=== PATIENT | female | born 1995 | race Caucasian/White ===

== ENCOUNTER 2017-03-06 13:10 | Outpatient (CLI) | payer OTHER ==
[2017-03-06] MEDS ORDERED: RINGERS SOLUTION,LACTATED 1,000 ML IV ONE (13:26)
[2017-03-06] MEDS ORDERED: RINGERS SOLUTION,LACTATED 1,000 ML IV PRN (13:26)
[2017-03-06 13:54] LABS: APPEARANCE,URINE SLIGHTLY-CLOUDY; BILIRUBIN,URINE NEGATIVE (NEGATIVE); GLUCOSE, URINE NEGATIVE (NEGATIVE); KETONES,URINE NEGATIVE (NEGATIVE); LEUKOCYTE ESTERASE,URINE MODERATE (NEGATIVE); NITRITE,URINE NEGATIVE (NEGATIVE); PROTEIN,URINE NEGATIVE (NEGATIVE); URINE SPECIFIC GRAVITY 1.003; UROBILINOGEN,URINE NEGATIVE mg/dL (<2.0)
[2017-03-06 14:11] LABS: URINE BARBITURATES SCREEN NEGATIVE; URINE METHADONE SCREEN NEGATIVE; URINE OPIATES LOW NEGATIVE; URINE PHENCYCLIDINE SCREEN NEGATIVE
--- NOTE | 2017-03-06 15:23 | Non Stress Test Report ---
Non Stress Test Datetime Report Generated by CPN: 03/06/2017 15:23 DEMOGRAPHIC EGA NST: 37.6 INDICATION Indication for Study: Ordered by Provider MONITORING Monitor Explained: Monitor Explained; Test Explained; Patient Verbalized Understanding Time on Monitor: 03/06/2017 13:44 Time off Monitor: 03/06/2017 14:10 NST Duration: 26 NST INTERVENTIONS NST Interventions: PO Hydration; IV Fluids Physician Notified NST: K Catalan CNM BABY A: [id number] BABY A Movement : Present Contraction Frequency : Irr FHR Baseline : 125 Accelerations : 15X15 Decelerations : None Variability : Moderate 6-25bpm NST Review: Meets Criteria for Reactive NST NST Review and Verified By : EVERT CAMPBELL RN NST Results: Reactive NST REPORT Report Trigger: Send Report
--- NOTE | 2017-03-06 21:45 | L&D Discharge Summary ---
OB Discharge Summary Datetime Report Generated by CPN: 03/06/2017 21:45 DISCHARGE DIAGNOSIS Diagnosis/Symptoms: Reassuring Surveillance - Annotate Details Diagnoses/Symptoms Other: IUP at 37.6, repeat SHILPA after IV fluids. Number of Babies in Womb: 1 Parity: 1 DIET/ACTIVITY/RESTRICTIONS Diet: Regular Activity: Normal Activity TEACHING/INSTRUCTIONS/REFERRALS Instructions Given To: Patient Instructions Understood: Patient Verbalized Understanding Referrals: None Educational Materials- Other: Kick Counts DISCHARGE INFORMATION Discharged AMA: No Discharge Date/Time: 03/06/2017 18:39 Discharged To: Home Discharge Provider Name: Dr. Moreno Accompanied By: Discharge Method: Ambulatory Condition: Stable FOLLOW UP INFORMATION Follow Up With: [facility] Follow Up On: As Scheduled Follow Up Phone Number: [facility] - Comments: Pt physically left L_D ambulatory in stable condition with familyat side with no complaints or needs at this time.
--- NOTE | 2017-03-13 22:49 | L&D General Admission ---
General Admit Datetime Report Generated by CPN: 03/13/2017 22:45 Patient Age: 21 (03/05/2017 16:33:QS system process) EDC: 03/21/2017 00:00 (03/06/2017 14:32:JOHNATHON Monsivais) : 3 (03/06/2017 14:32:JOHNATHON Monsivais) Para: 1 (03/06/2017 14:32:JOHNATHON Monsivais) Term: 1 (03/06/2017 14:32:JOHNATHON Monsivais) : 0 (03/06/2017 14:32:JOHNATHON Monsivais) Spontaneous Abortions: 1 (03/06/2017 14:32:JOHNATHON Monsivais) Induced Abortions: 0 (03/06/2017 14:32:JOHNATHON Monsivais) Livin (03/06/2017 14:32:JOHNATHON Monsivais) Cesareans: 0 (03/06/2017 14:32:JOHNATHON Monsivais) VBACs: 0 (03/06/2017 14:32:JOHNATHON Monsivais) Ectopic: 0 (03/06/2017 14:32:JOHNATHON Monsivais) Multiple Births: 0 (03/06/2017 14:32:JOHNATHON Monsivais) Baby, Number in Womb: 1 (03/06/2017 14:32:JOHNATHON Monsivais) Primary Assistant Housekeeping Manager: [facility] (03/06/2017 14:32:JOHNATHON Monsivais) Adequate Care: Yes (03/06/2017 14:32:JOHNATHON Monsivais) Prepregnancy Weight (lb): 192 (03/06/2017 14:32:JOHNATHON Monsivais) Medication Allergy: Yes (03/06/2017 14:32:JOHNATHON Monsivais) Medication Allergies: dexamethasone sod phosphate (03/06/2017); Penicillins (03/06/2017); dexamethasone (03/06/2017); latex (03/06/2017) (03/06/2017 13:22:QS system process) Medication Allergies: dexamethasone sod phosphate (12/10/2015); Penicillins (12/10/2015); dexamethasone (12/10/2015); latex (12/11/2015) (03/05/2017 16:33:QS system process) Latex Allergy: Latex Allergies (03/06/2017 14:32:JOHNATHON Monsivais) Primary Language: Armenian (03/06/2017 14:32:JOHNATHON Monsivais) Address: [address] [place] [address] (03/05/2017 16:33:QS system process) Zipcode: [facility] (03/05/2017 16:33:QS system process) Home (03/05/2017 16:33:QS system process) SSN: [id number] (03/05/2017 16:33:QS system process) Next of Kin Name: SERJIO MCCALL (03/05/2017 16:33:QS system process) Next of Kin (03/05/2017 16:33:QS system process) Next of Kin Relationship: SPO (03/05/2017 16:33:QS system process) Date of : 1995 (03/05/2017 16:33:QS system process) Marital Status: (03/05/2017 16:33:QS system process) Sex: Female (03/05/2017 16:33:QS system process) Race: (03/05/2017 16:33:QS system process) Ethnicity: Non- or (03/05/2017 16:33:QS system process) Jehovah'S Witness: Voodoo (03/05/2017 16:33:QS system process) Alcohol: No (03/06/2017 14:32:JOHNATHON Monsivais) Cigarettes: Never Smoker. [id number] (03/06/2017 14:32:JOHNATHON Monsivais) Marijuana: No (03/06/2017 14:32:JOHNATHON Monsivais) Cocaine: No (03/06/2017 14:32:JOHNATHON Monsivais) Other Illicit Drugs: No (03/06/2017 14:32:JOHNATHON Monsivais)
--- NOTE | 2017-03-13 22:49 | L&D Discharge Summary ---
OB Discharge Summary Datetime Report Generated by CPN: 03/13/2017 22:45 DISCHARGE DIAGNOSIS Diagnosis/Symptoms: Reassuring Surveillance - Annotate Details Diagnoses/Symptoms Other: IUP at 37.6, repeat SHILPA after IV fluids. Gestation: 38.6 Number of Babies in Womb: 1 Parity: 1 DIET/ACTIVITY/RESTRICTIONS Diet: Regular Activity: Normal Activity TEACHING/INSTRUCTIONS/REFERRALS Instructions Given To: Patient Instructions Understood: Patient Verbalized Understanding Referrals: None Educational Materials- Other: Kick Counts DISCHARGE INFORMATION Discharged AMA: No Discharge Date/Time: 03/06/2017 18:39 Discharged To: Home Discharge Provider Name: Dr. Moreno Accompanied By: Discharge Method: Ambulatory Condition: Stable FOLLOW UP INFORMATION Follow Up With: [facility] Follow Up On: As Scheduled Follow Up Phone Number: [facility] - Comments: Pt physically left L_D ambulatory in stable condition with familyat side with no complaints or needs at this time.
--- NOTE | 2017-03-14 04:49 | L&D General Admission ---
General Admit Datetime Report Generated by CPN: 03/14/2017 04:46 INFORMATION Patient Age: 21 (03/05/2017 16:33:QS system process) EDC: 03/21/2017 00:00 (03/06/2017 14:32:JOHNATHON Monsivais) : 3 (03/06/2017 14:32:JOHNATHON Monsivais) Para: 1 (03/06/2017 14:32:JOHNATHON Monsivais) Term: 1 (03/06/2017 14:32:JOHNATHON Monsivais) : 0 (03/06/2017 14:32:JOHNATHON Monsivais) Spontaneous Abortions: 1 (03/06/2017 14:32:JOHNATHON Monsivais) Induced Abortions: 0 (03/06/2017 14:32:JOHNATHON Monsivais) Livin (03/06/2017 14:32:JOHNATHON Monsivais) Cesareans: 0 (03/06/2017 14:32:JOHNATHON Monsivais) VBACs: 0 (03/06/2017 14:32:JOHNATHON Monsivais) Ectopic: 0 (03/06/2017 14:32:JOHNATHON Monsivais) Multiple Births: 0 (03/06/2017 14:32:JOHNATHON Monsivais) Baby, Number in Womb: 1 (03/06/2017 14:32:JOHNATHON Monsivais) CARE Primary Celery Packer: [facility] (03/06/2017 14:32:JOHNATHON Monsivais) Adequate Care: Yes (03/06/2017 14:32:JOHNATHON Monsivais) Prepregnancy Weight (lb): 192 (03/06/2017 14:32:JOHNATHON Monsivais) Prepregnancy Weight (kg): 87.3 (03/06/2017 14:32:QS system process) Height (in): 65 (03/06/2017 13:22:QS system process) ALLERGIES Medication Allergy: Yes (03/06/2017 14:32:JOHNATHON Monsivais) Medication Allergies: dexamethasone sod phosphate (03/06/2017); Penicillins (03/06/2017); dexamethasone (03/06/2017); latex (03/06/2017) (03/06/2017 13:22:QS system process) Medication Allergies: dexamethasone sod phosphate (12/10/2015); Penicillins (12/10/2015); dexamethasone (12/10/2015); latex (12/11/2015) (03/05/2017 16:33:QS system process) Latex Allergy: Latex Allergies (03/06/2017 14:32:JOHNATHON Monsivais) COMMUNICATION Primary Language: Divehi (03/06/2017 14:32:JOHNATHON Monsivais) DEMOGRAPHICS Address: [address] [place] [id number] (03/05/2017 16:33:QS system process) Zipcode: [address] (03/05/2017 16:33:QS system process) Home (03/05/2017 16:33:QS system process) N: [id number] (03/05/2017 16:33:QS system process) Next of Kin Name: SERJIO MCCALL (03/05/2017 16:33:QS system process) Next of Kin (03/05/2017 16:33:QS system process) Next of Kin Relationship: SPO (03/05/2017 16:33:QS system process) Date of : 1995 (03/05/2017 16:33:QS system process) Marital Status: (03/05/2017 16:33:QS system process) Sex: Female (03/05/2017 16:33:QS system process) Race: (03/05/2017 16:33:QS system process) Ethnicity: Non- or (03/05/2017 16:33:QS system process) Samaritan: Sabianism (03/05/2017 16:33:QS system process) DRUG AND ALCOHOL USE Alcohol: No (03/06/2017 14:32:JOHNATHON Monsivais) Cigarettes: Never Smoker. [id number] (03/06/2017 14:32:JOHNATHON Monsivais) Marijuana: No (03/06/2017 14:32:JOHNATHON Monsivais) Cocaine: No (03/06/2017 14:32:JOHNATHON Monsivais) Other Illicit Drugs: No (03/06/2017 14:32:JOHNATHON Monsivais)
--- NOTE | 2017-03-14 04:49 | L&D Discharge Summary ---
OB Discharge Summary Datetime Report Generated by CPN: 03/14/2017 04:46 DISCHARGE DIAGNOSIS Diagnosis/Symptoms: Reassuring Surveillance - Annotate Details Diagnoses/Symptoms Other: IUP at 37.6, repeat SHILPA after IV fluids. Gestation: 38.6 Number of Babies in Womb: 1 Parity: 1 DIET/ACTIVITY/RESTRICTIONS Diet: Regular Activity: Normal Activity TEACHING/INSTRUCTIONS/REFERRALS Instructions Given To: Patient Instructions Understood: Patient Verbalized Understanding Referrals: None Educational Materials- Other: Kick Counts DISCHARGE INFORMATION Discharged AMA: No Discharge Date/Time: 03/06/2017 18:39 Discharged To: Home Discharge Provider Name: Dr. Moreno Accompanied By: Discharge Method: Ambulatory Condition: Stable FOLLOW UP INFORMATION Follow Up With: [facility] Follow Up On: As Scheduled Follow Up Phone Number: [facility] - Comments: Pt physically left L_D ambulatory in stable condition with familyat side with no complaints or needs at this time.
--- NOTE | 2017-03-14 10:49 | L&D General Admission ---
General Admit Datetime Report Generated by CPN: 03/14/2017 10:45 INFORMATION Patient Age: 21 (03/05/2017 16:33:QS system process) EDC: 03/21/2017 00:00 (03/06/2017 14:32:JOHNATHON Monsivais) : 3 (03/06/2017 14:32:JOHNATHON Monsivais) Para: 1 (03/06/2017 14:32:JOHNATHON Monsivais) Term: 1 (03/06/2017 14:32:JOHNATHON Monsivais) : 0 (03/06/2017 14:32:JOHNATHON Monsivais) Spontaneous Abortions: 1 (03/06/2017 14:32:JOHNATHON Monsivais) Induced Abortions: 0 (03/06/2017 14:32:JOHNATHON Monsivais) Livin (03/06/2017 14:32:JOHNATHON Monsivais) Cesareans: 0 (03/06/2017 14:32:JOHNATHON Monsivais) VBACs: 0 (03/06/2017 14:32:JOHNATHON Monsivais) Ectopic: 0 (03/06/2017 14:32:JOHNATHON Monsivais) Multiple Births: 0 (03/06/2017 14:32:JOHNATHON Monsivais) Baby, Number in Womb: 1 (03/06/2017 14:32:JOHNATHON Monsivais) CARE Primary Casting Finisher: [facility] (03/06/2017 14:32:JOHNATHON Monsivais) Adequate Care: Yes (03/06/2017 14:32:JOHNATHON Monsivais) Prepregnancy Weight (lb): 192 (03/06/2017 14:32:JOHNATHON Monsivais) Prepregnancy Weight (kg): 87.3 (03/06/2017 14:32:QS system process) Height (in): 65 (03/06/2017 13:22:QS system process) ALLERGIES Medication Allergy: Yes (03/06/2017 14:32:JOHNATHON Monsivais) Medication Allergies: dexamethasone sod phosphate (03/06/2017); Penicillins (03/06/2017); dexamethasone (03/06/2017); latex (03/06/2017) (03/06/2017 13:22:QS system process) Medication Allergies: dexamethasone sod phosphate (12/10/2015); Penicillins (12/10/2015); dexamethasone (12/10/2015); latex (12/11/2015) (03/05/2017 16:33:QS system process) Latex Allergy: Latex Allergies (03/06/2017 14:32:JOHNATHON Monsivais) COMMUNICATION Primary Language: Belarusian (03/06/2017 14:32:JOHNATHON Monsivais) DEMOGRAPHICS Address: [address] [place] [id number] (03/05/2017 16:33:QS system process) Zipcode: [address] (03/05/2017 16:33:QS system process) Home (03/05/2017 16:33:QS system process) N: [id number] (03/05/2017 16:33:QS system process) Next of Kin Name: SERJIO MCCALL (03/05/2017 16:33:QS system process) Next of Kin (03/05/2017 16:33:QS system process) Next of Kin Relationship: SPO (03/05/2017 16:33:QS system process) Date of : 1995 (03/05/2017 16:33:QS system process) Marital Status: (03/05/2017 16:33:QS system process) Sex: Female (03/05/2017 16:33:QS system process) Race: (03/05/2017 16:33:QS system process) Ethnicity: Non- or (03/05/2017 16:33:QS system process) Mosque: Scientologist (03/05/2017 16:33:QS system process) DRUG AND ALCOHOL USE Alcohol: No (03/06/2017 14:32:JOHNATHON Monsivais) Cigarettes: Never Smoker. [id number] (03/06/2017 14:32:JOHNATHON Monsivais) Marijuana: No (03/06/2017 14:32:JOHNATHON Monsivais) Cocaine: No (03/06/2017 14:32:JOHNATHON Monsivais) Other Illicit Drugs: No (03/06/2017 14:32:JOHNATHON Monsivais)
--- NOTE | 2017-03-14 10:49 | L&D Discharge Summary ---
OB Discharge Summary Datetime Report Generated by CPN: 03/14/2017 10:45 DISCHARGE DIAGNOSIS Diagnosis/Symptoms: Reassuring Surveillance - Annotate Details Diagnoses/Symptoms Other: IUP at 37.6, repeat SHILPA after IV fluids. Gestation: 38.6 Number of Babies in Womb: 1 Parity: 1 DIET/ACTIVITY/RESTRICTIONS Diet: Regular Activity: Normal Activity TEACHING/INSTRUCTIONS/REFERRALS Instructions Given To: Patient Instructions Understood: Patient Verbalized Understanding Referrals: None Educational Materials- Other: Kick Counts DISCHARGE INFORMATION Discharged AMA: No Discharge Date/Time: 03/06/2017 18:39 Discharged To: Home Discharge Provider Name: Dr. Moreno Accompanied By: Discharge Method: Ambulatory Condition: Stable FOLLOW UP INFORMATION Follow Up With: [facility] Follow Up On: As Scheduled Follow Up Phone Number: [facility] - Comments: Pt physically left L_D ambulatory in stable condition with familyat side with no complaints or needs at this time.
== END 2017-03-06 18:39 | disposition home or self-care (01) ==
LOC: LC 13:10
PROVIDERS: ATTEND Specialist
PROC: 4A1HXCZ Monitoring of Products of Conception, Cardiac Rate, External Approach (ICD-10-PCS; principal; 2017-03-06)
DX: Z36 Encounter for antenatal screening of mother (principal); Z3A.38 38 weeks gestation of pregnancy
CPT/HCPCS: 59025; 76815; 80307; 81005

== ENCOUNTER 2017-03-15 23:19 | Outpatient (CLI) | payer OTHER ==
[2017-03-15 23:58] LABS: APPEARANCE,URINE CLEAR; BILIRUBIN,URINE NEGATIVE (NEGATIVE); GLUCOSE, URINE NEGATIVE (NEGATIVE); KETONES,URINE NEGATIVE (NEGATIVE); LEUKOCYTE ESTERASE,URINE NEGATIVE (NEGATIVE); NITRITE,URINE NEGATIVE (NEGATIVE); PROTEIN,URINE NEGATIVE (NEGATIVE); URINE SPECIFIC GRAVITY 1.001; UROBILINOGEN,URINE NEGATIVE mg/dL (<2.0)
[2017-03-16 00:12] LABS: URINE BARBITURATES SCREEN NEGATIVE; URINE METHADONE SCREEN NEGATIVE; URINE OPIATES LOW NEGATIVE; URINE PHENCYCLIDINE SCREEN NEGATIVE
--- NOTE | 2017-03-16 01:16 | Non Stress Test Report ---
Non Stress Test Datetime Report Generated by CPN: 03/16/2017 01:16 DEMOGRAPHIC EGA NST: 39.1 INDICATION Indication for Study: Other Indication for Study (NST) Other: LC URINE RESULTS Urine Protein, NST: Negative Urine Ketones - NST: Negative Urine Glucose - NST: Negative Urine Blood - NST: Negative MONITORING Monitor Explained: Monitor Explained; Test Explained; Patient Verbalized Understanding Time on Monitor: 03/15/2017 23:45 Time off Monitor: 03/16/2017 00:58 NST Duration: 73 NST INTERVENTIONS NST Interventions: PO Hydration Physician Notified NST: Dr. Lopez BABY A: [id number] BABY A Movement : Present Contraction Frequency : 6-9 FHR Baseline : 125 Accelerations : 15X15 Decelerations : None Variability : Moderate 6-25bpm NST Review: Meets Criteria for Reactive NST NST Review and Verified By : Pina Aaron RN NST Results: Reactive NST REPORT Report Trigger: Send Report
== END 2017-03-16 01:14 | disposition home or self-care (01) ==
LOC: LC 23:19
PROVIDERS: ATTEND Student in an Organized Health Care Education/Training Program
PROC: 4A1HXCZ Monitoring of Products of Conception, Cardiac Rate, External Approach (ICD-10-PCS; principal; 2017-03-15)
DX: O47.1 False labor at or after 37 completed weeks of gestation (principal); Z3A.39 39 weeks gestation of pregnancy
CPT/HCPCS: 59025; 80307; 81005

== ENCOUNTER 2017-03-18 19:00 | Outpatient (CLI) | payer OTHER ==
[2017-03-18 19:45] LABS: APPEARANCE,URINE CLEAR; BILIRUBIN,URINE NEGATIVE (NEGATIVE); GLUCOSE, URINE NEGATIVE (NEGATIVE); KETONES,URINE NEGATIVE (NEGATIVE); LEUKOCYTE ESTERASE,URINE NEGATIVE (NEGATIVE); NITRITE,URINE NEGATIVE (NEGATIVE); PROTEIN,URINE NEGATIVE (NEGATIVE); URINE SPECIFIC GRAVITY 1.002; UROBILINOGEN,URINE NEGATIVE mg/dL (<2.0)
--- NOTE | 2017-03-18 20:00 | L&D Flow Sheet ---
LD Flowsheet Datetime Report Generated by CPN: 03/18/2017 20:00 Datetime: 03/18/2017 19:42 Monitor Mode: External (Ulysses Roxy, RN) Frequency (min): x2 (Ulysses Roxy, RN) Quality: Mild (Ulysses Roxy, RN) Resting Tone (Palpate): Relaxed (Ulysses Roxy, RN) Monitor Mode: External US (Ulysses Roxy, RN) FHR Baseline Rate : 125 (Ulysses Ramsey, RN) Variability: Moderate 6-25 bpm (Ulysses Roxy, RN) Accelerations: 15X15 (Ulysses Roxy, RN) Decelerations: None (Ulysses Roxy, RN) Datetime: 03/18/2017 19:38 NBP Sys/Araceli/Mean (mmHg): 105 (QS system process) : 60 (QS system process) : 78 (QS system process) Pulse: 82 (QS system process) LaborFlag: Labor (QS system process) Datetime: 03/18/2017 19:29 NBP Sys/Araceli/Mean (mmHg): 115 (QS system process) : 71 (QS system process) : 86 (QS system process) Pulse: 110 (QS system process) Dilatation (cm): 4.5 (Ulysses Ramsey RN) Effacement (%): 50 (Ulysses Ramsey RN) Station: -2 (Ulysses Ramsey RN) Exam by: Jace Dixon RN (Ulysses Ramsey RN) LaborFlag: Labor (QS system process) Datetime: 03/18/2017 19:25 Pain Scale: 3 (Ulysses Ramsey RN) Pain Presence: Intermittent (Ulysses Ramsey RN) Pain Type: Contraction (Ulysses Ramsey RN) Pain Location: Abdomen; Back (Ulysses Ramsey RN) Pain Goal: 1 (Ulysses Ramsey RN) Pain Coping: Talking Through Contractions; Breathing Through Contractions (Ulysses Ramsey RN) Membrane Status: Intact (Ulysses Ramsey RN) Vaginal Bleeding: Normal Show (Ulysses Ramsey RN) Level of Consciousness: Fully Conscious (Ulysses Ramsey RN) DTR's/Clonus: DTRs 2+; No Clonus (Ulysses Ramsey RN) Headache: Denies (Ulysses Ramsey RN) Breath Sounds, Left: Clear and Equal (Ulysses Ramsey RN) Breath Sounds, Right: Clear and Equal (Ulysses Ramsey RN) Nausea/Vomiting: Denies (Ulysses Ramsey RN) RUQ Epigastric Pain: Denies (Ulysses Ramsey RN) LaborFlag: Labor (QS system process)
[2017-03-18 20:06] LABS: URINE BARBITURATES SCREEN NEGATIVE; URINE METHADONE SCREEN NEGATIVE; URINE OPIATES LOW NEGATIVE; URINE PHENCYCLIDINE SCREEN NEGATIVE
--- NOTE | 2017-03-18 21:41 | Non Stress Test Report ---
Non Stress Test Datetime Report Generated by CPN: 03/18/2017 21:41 DEMOGRAPHIC EGA NST: 39.4 INDICATION Indication for Study: Ordered by Provider Indication for Study (NST) Other: Labor Check MONITORING Monitor Explained: Monitor Explained; Test Explained; Patient Verbalized Understanding Time on Monitor: 03/18/2017 09:17 Time off Monitor: 03/18/2017 09:42 NST Duration: 25 NST INTERVENTIONS NST Interventions: PO Hydration Physician Notified NST: Dr. Rowe BABY A: [id number] BABY A Movement : Present Contraction Frequency : X2 FHR Baseline : 125 Accelerations : 15X15 Decelerations : None Variability : Moderate 6-25bpm NST Review: Meets Criteria for Reactive NST NST Review and Verified By : Go Elmira RN NST Results: Reactive NST REPORT Report Trigger: Send Report
== END 2017-03-18 21:37 | disposition home or self-care (01) ==
LOC: LC 19:00
PROVIDERS: ATTEND Obstetrics & Gynecology
PROC: 4A1HXCZ Monitoring of Products of Conception, Cardiac Rate, External Approach (ICD-10-PCS; principal; 2017-03-18)
DX: O47.1 False labor at or after 37 completed weeks of gestation (principal); Z3A.39 39 weeks gestation of pregnancy
CPT/HCPCS: 59025; 80307; 81005

== ENCOUNTER 2017-03-19 16:33 | Inpatient (IN) | payer OTHER ==
[2017-03-27] MEDS ORDERED: RINGERS SOLUTION,LACTATED 1,000 ML IV PRN (07:35)
[2017-03-27] MEDS ORDERED: RINGERS SOLUTION,LACTATED 300 ML IV ONE (07:35)
[2017-03-27] MEDS ORDERED: OXYTOCIN/NORMAL SALINE 1,000 ML IV PRN ×2 (07:35→13:54)
[2017-03-27 08:03] LABS: ABSOLUTE BASOPHILS # (AUTO) 0.1 10^3/uL (0.0-0.2); ABSOLUTE EOSINOPHILS # (AUTO) 0.1 10^3/uL (0.0-0.6); ABSOLUTE MONOCYTES (AUTO) 0.7 10^3/uL (0.1-1.4); ABSOLUTE NEUT (AUTO) 5.1 10^3/uL (1.7-8.2); BASOPHILS % (AUTO) 0.7 % (0-2); EOSINOPHILS % (AUTO) 1.1 % (0-6); HEMATOCRIT 35.5 % (36.0-47.0); HEMOGLOBIN 11.7 g/dL (12.0-15.5); HGB HCT DIFFERENCE -0.4; LYMPHOCYTES % (AUTO) 33.2 % (13-45); MEAN CORPUSCULAR HEMOGLOBIN 25.3 pg (27.0-33.4); MEAN CORPUSCULAR HGB CONC 32.9 g/dL (32.0-36.0); MEAN CORPUSCULAR VOLUME 77 fl (80-97); RED BLOOD COUNT 4.63 10^6/uL (3.72-5.28); RED CELL DISTRIBUTION WIDTH 15.3 % (11.5-14.0)
[2017-03-27 08:09] LABS: APPEARANCE,URINE SLIGHTLY-CLOUDY; BILIRUBIN,URINE NEGATIVE (NEGATIVE); GLUCOSE, URINE NEGATIVE (NEGATIVE); KETONES,URINE NEGATIVE (NEGATIVE); LEUKOCYTE ESTERASE,URINE LARGE (NEGATIVE); NITRITE,URINE NEGATIVE (NEGATIVE); PROTEIN,URINE NEGATIVE (NEGATIVE); URINE SPECIFIC GRAVITY 1.005; UROBILINOGEN,URINE NEGATIVE mg/dL (<2.0)
[2017-03-27] MEDS ORDERED: OXYTOCIN/NORMAL SALINE 20 UNIT/1,000 ML RTUINJ ONE (08:24)
[2017-03-27 08:37] LABS: URINE BARBITURATES SCREEN NEGATIVE; URINE METHADONE SCREEN NEGATIVE; URINE OPIATES LOW NEGATIVE; URINE PHENCYCLIDINE SCREEN NEGATIVE
--- NOTE | 2017-03-27 10:14 | L&D Progress Notes ---
PROGRESS NOTES Datetime Report Generated by CPN: 03/27/2017 10:14 PROGRESS NOTE Procedures: Artificial ROM; Sterile Vag Exam Plan: Continue Present Management; Induction Informed Consent Obtained: Vaginal Delivery Vital Signs : Reviewed; Within Normal Limits Comment: VE = 5/80/vtx/-1, stretchy cervix, Cat 1 strip, continue Pitocin FETUS A FHR - Baseline: 150 Variability: Moderate 6-25bpm Accelerations: 15X15 Decelerations: None SIGNATURE SIGNATURE: [id number];[id number] SIGNATURE: [id number] SIGNATURE: [id number] SIGNATURE: [id number] Assignment: Nancy Garzon MD Signature: with User ID: Liam : with User ID: Liam
[2017-03-27] MEDS ORDERED: FENTANYL/BUPIVACAINE/NS/PF 200 MCG/100 ML RTUINJ EPI ONE (11:33)
[2017-03-27] MEDS ORDERED: BUPIVACAINE HCL 0.25 % INJ/PF (2.5 MG/1 ML) 30 ML VIAL ONE (11:33)
[2017-03-27] MEDS ORDERED: EPHEDRINE SULFATE INJ 50 MG/1 ML AMPULE ONE (11:33)
[2017-03-27] MEDS ORDERED: LIDOCAINE 1% INJ-PF (10 MG/ML) 30 ML SDV ONE (11:34)
[2017-03-27] MEDS ORDERED: MISOPROSTOL 0.2 MG TABLET ONE (11:34)
--- NOTE | 2017-03-27 12:29 | L&D Progress Notes ---
PROGRESS NOTES Datetime Report Generated by CPN: 03/27/2017 12:29 PROGRESS NOTE Comment: Having early and prolonged deceleration, FSE applied, turned to left and right side, Pitocin off, knee chest, Dr. Garzon notified, VE /vtx/-1, Dr. Garzon ordered Epidural, breathing with UC's FETUS C SIGNATURE: [id number];[id number] Assignment: Nancy Garzon MD Signature: with User ID: JCox : with User ID: JCox
[2017-03-27 13:53] LABS: ARTERIAL BLOOD BASE EXCESS -4.1 mmol/L; ARTERIAL BLOOD O2 SATURATION 62.7 % (94-98)
[2017-03-27] MEDS ORDERED: MISOPROSTOL 0.2 MG TABLET PR ONE (13:54)
[2017-03-27] MEDS ORDERED: MEASLES,MUMPS&RUBELLA VACC/PF 0.5 ML VIAL SUBCUT PRN (13:54)
[2017-03-27] MEDS ORDERED: ACETAMINOPHEN WITH CODEINE #3 TABLET PO PRN (13:54)
[2017-03-27] MEDS ORDERED: PSEUDOEPHEDRINE HCL 30 MG TABLET PO PRN (13:54)
[2017-03-27] MEDS ORDERED: PROMETHAZINE HCL INJ 25 MG/1 ML VIAL IV PRN (13:54)
[2017-03-27] MEDS ORDERED: NA PHOS,M-B/NA PHOS,DI-BA (ADULT) 133 ML ENEMA PR PRN (13:54)
[2017-03-27] MEDS ORDERED: DIBUCAINE 1% OINTMENT 28 GM TP PRN (13:54)
[2017-03-27] MEDS ORDERED: ACETAMINOPHEN 650 MG SUPP.RECT PR PRN (13:54)
[2017-03-27] MEDS ORDERED: DIPHENHYDRAMINE HCL 25 MG CAPSULE PO PRN (13:54)
[2017-03-27] MEDS ORDERED: PROMETHAZINE HCL 25 MG SUPP.RECT PR PRN (13:54)
[2017-03-27] MEDS ORDERED: PROMETHAZINE HCL 25 MG TABLET PO PRN (13:54)
[2017-03-27] MEDS ORDERED: MAGNESIUM HYDROXIDE SUSP 30 ML UDCUP PO PRN (13:54)
[2017-03-27] MEDS ORDERED: GLYCERIN/WITCH HAZEL LEAF 1 EACH MED..PAD TP PRN (13:54)
[2017-03-27] MEDS ORDERED: BENZOCAINE/MENTHOL AEROSOL SPRAY 56 ML TOP PRN (13:54)
[2017-03-27] MEDS ORDERED: DIPH/PERTUSS(ACELL)/TETANUS VAC/PF 0.5 ML SYR (>=10YO) IM PRN (13:54)
--- NOTE | 2017-03-27 15:08 | Delivery Summary ---
Del Sum A-C Datetime Report Generated by CPN: 03/27/2017 15:07 DELIVERY PERSONNEL DELIVERY PERSONNEL: [id number];[id number];[id number] Delivery Doctor:: Ngoc Muñoz CNM Labor and Delivery Nurse:: Bev Romero RNacute care surgeon Nurse:: ELAINE Katz/C T TECH: Kirsten Thomas CNA II MATERNAL INFORMATION Delivery Anesthesia: Epidural Medications After Delivery: Pitocin Bolus-Please Comment; Cytotec 600mcg Per Rectum/Vagina Meds After Delivery Comment: Pitocin bolus 20 units Estimated Blood Loss (ml): 250 Maternal Complications: Precipitous Labor (<3hrs) Provider Comments: viable female from OA to MASOUD over intact perineum, placed on mothers abd, cord clamped and cut by dad after 2 minutes, spont delivery of grossly nl intact placenta, 3 vc, EBL = 250cc, baby on mothers abd for bonding. FFFM, cytotec 600 mcg via rectum LABOR SUMMARY EDC: 03/21/2017 00:00 No. Babies in Womb: 1 Labor Anesthesia: Epidural LABOR INFORMATION Reason for Induction: Post Dates Onset of Labor: 03/27/2017 11:00 Complete Dilatation: 03/27/2017 13:20 Oxytocin: Induction Group B Beta Strep: negative Antibiotics # of Doses: 0 Steroids Given: None Reason Steroids Not Administered: Not Applicable MEMBRANES Membranes Rupture Method: Artificial Rupture of Membranes: 03/27/2017 10:06 Length of Rupture (hr): 3.40 Amniotic Fluid Color: Clear Amniotic Fluid Amount: Small Amniotic Fluid Odor: Normal STAGES OF LABOR Stage 1 hr: 2 Stage 1 min: 20 Stage 2 hr: 0 Stage 2 min: 10 Stage 3 hr: 0 Stage 3 min: 5 Total Time in Labor hr: 2 Total Time in Labor min: 35 VAGINAL DELIVERY Episiotomy: None Laceration Extension: N/A Laceration Type: None Laceration Repair: Not Applicable Sponge Count Correct: N/A Sharps Count Correct: N/A BABY A INFORMATION Delivery Date/Time: 03/27/2017 13:30 Method of Delivery: Vaginal Born in Route : No : N/A Forceps: N/A Vacuum Extraction: N/A Shoulder Dystocia : No PRESENTATION/POSITION BABY A Presentation: Cephalic Cephalic Presentation: Vertex Vertex Position: Left Occipital Anterior Breech Presentation: N/A PLACENTA INFORMATION BABY A Placenta Delivery Time : 03/27/2017 13:35 Placenta Method of Delivery: Spontaneous Placenta Status: Delivered SCORES BABY A Heart Rate 1 min: >100 bpm Resp Effort 1 min: Good Cry Reflex Irritability 1 min: Cough or Sneeze or Pulls Away Muscle Tone 1 min: Active Motion Color 1 min: Body [place], Extremities Blue Resuscitation Effort 1 min: N/A SCORE 1 MIN: 9 Heart Rate 5 min: >100 bpm Resp Effort 5 min: Good Cry Reflex Irritability 5 min: Cough or Sneeze or Pulls Away Muscle Tone 5 min: Active Motion Color 5 min: Body [place], Extremities Blue Resuscitation Effort 5 min: N/A SCORE 5 MIN: 9 INFANT INFORMATION BABY A Gestational Age at Delivery: 40.6 Gestational Status: Full Term- 39- 40.6 Weeks Infant Outcome : Liveborn Infant Condition : Stable Sex: Female IDENTIFICATION BABY A Infant Verification Date/Time: 03/27/2017 14:13 ID Band Number: [id number] Mother's Name Verified: Yes Infant RN Verifying : Fran ROMERO RN Additional Verifying Personnel: A JOANNE, RN WEIGHT/LENGTH BABY A Infant Birthweight (gm): 3810 Infant Weight (lb): 8 Infant Weight (oz): 6 Infant Length (in): 20.50 Length (cm): 52.07 CORD INFORMATION BABY A No. Cord Vessels: 3 Nuchal Cord : N/A Cord Blood Taken: Yes-For Eval (Mom's Blood Type - or O+) Infant Suction: None ASSESSMENT BABY A Infant Complications: Multiple Late Decels Physical Findings at Delivery: Within Normal Limits Infant Respirations: Appears Normal Skin to Skin: Yes Skin to Skin Time (min): 60 Party Director/ALS Called : No Infant Care By: Kia Loyola RN Transferred To: Remains with Mother
[2017-03-27] MEDS: FERROUS SULFATE 325 MG TABLET PO SCH (17:14)
[2017-03-27] MEDS: DOCUSATE SODIUM 100 MG CAPSULE PO SCH (17:14)
[2017-03-27] MEDS: ACETAMINOPHEN WITH CODEINE #3 TABLET PO PRN (20:01)
[2017-03-27] MEDS: FAMOTIDINE 20 MG TABLET PO SCH (21:29)
[2017-03-27] MEDS: IBUPROFEN 800 MG TABLET PO SCH (21:30)
[2017-03-28] MEDS: ACETAMINOPHEN WITH CODEINE #3 TABLET PO PRN (02:01)
[2017-03-28] MEDS: IBUPROFEN 800 MG TABLET PO SCH ×3 (05:06→21:11)
[2017-03-28 08:03] LABS: HEMOGLOBIN 10.3 g/dL (12.0-15.5); HGB HCT DIFFERENCE -0.1; MEAN CORPUSCULAR HEMOGLOBIN 25.4 pg (27.0-33.4); MEAN CORPUSCULAR HGB CONC 33.3 g/dL (32.0-36.0); MEAN CORPUSCULAR VOLUME 76 fl (80-97); RED BLOOD COUNT 4.06 10^6/uL (3.72-5.28); RED CELL DISTRIBUTION WIDTH 15.5 % (11.5-14.0); WHITE BLOOD COUNT 12.7 10^3/uL (4.0-10.5)
--- NOTE | 2017-03-28 09:49 | PDOC PROGRESS REPORT ---
Subjective-OB Subjective: Post Delivery Day: 22 year old. Denies any needs at this time Physical Exam (OB) Vital Signs: Temp Pulse Resp BP Pulse Ox 97.5 F 73 16 118/73 100 03/28/17 08:15 03/28/17 08:08 03/28/17 08:15 03/28/17 08:08 03/28/17 08:08 Intake & Output 03/27/17 03/28/17 03/29/17 06:59 06:59 06:59 Weight 91.9 kg - PIH/Pre-Eclampsia Clonus: Negative - Lochia Lochia Amount: Scant < 10 ml Lochia Color: Rubra/Red - Abdomen Description: Soft, Round Hernia Present: No Bowel Sounds: Normoactive Flatus Presence: Present Stool: Yes Fundal Description: Firm, Midline Fundal Height: u/u - u/2 Objective-Diagnostic Laboratory: 03/28/17 07:36 03/27/17 03/28/17 13:30 07:36 WBC 12.7 H RBC 4.06 Hgb 10.3 L Hct 31.0 L MCV 76 L MCH 25.4 L MCHC 33.3 RDW 15.5 H Plt Count 243 Carbonic Acid 1.09 HCO3/H2CO3 Ratio 18:1 ABG pH 7.37 ABG pCO2 36.2 ABG pO2 33.3 L* ABG HCO3 20.5 ABG O2 Saturation 62.7 L ABG Base Excess -4.1 FiO2 CORD BLOOD
[2017-03-28] MEDS ORDERED: SENNOSIDES/DOCUSATE 8.6-50 MG 1 EACH TABLET PO SCH (10:00)
[2017-03-28] MEDS ORDERED: PRENATAL VITAMIN W-O CA NO5/FE FUMARATE/FA CAPSULE PO SCH (10:00)
[2017-03-28] MEDS: DOCUSATE SODIUM 100 MG CAPSULE PO SCH ×2 (10:21→17:18)
[2017-03-28] MEDS: FERROUS SULFATE 325 MG TABLET PO SCH ×2 (10:22→17:18)
[2017-03-28] MEDS: FAMOTIDINE 20 MG TABLET PO SCH ×2 (10:23→21:11)
[2017-03-29] MEDS: IBUPROFEN 800 MG TABLET PO SCH (05:39)
--- NOTE | 2017-03-29 10:30 | PDOC PROGRESS REPORT ---
Subjective-OB Subjective: Post Delivery Day: 22 year old. Denies any needs at this time. Ready to go home. Physical Exam (OB) Vital Signs: Temp Pulse Resp BP Pulse Ox 97.4 F 52 L 16 97/57 L 94 03/29/17 07:34 03/29/17 07:34 03/29/17 07:34 03/29/17 07:34 03/29/17 07:34 Intake & Output 03/28/17 03/29/17 03/30/17 06:59 06:59 06:59 Intake Total 500 Balance 500 Weight 91.9 kg - PIH/Pre-Eclampsia Clonus: Negative - Lochia Lochia Amount: Scant < 10 ml Lochia Color: Rubra/Red - Abdomen Description: Tender, Soft Hernia Present: No Bowel Sounds: Normoactive Flatus Presence: Present Stool: Yes Fundal Description: Firm, Midline Fundal Height: u/u - u/2 Objective-Diagnostic Laboratory: 03/28/17 07:36
--- NOTE | 2017-03-29 10:35 | PDOC DISCHARGE SUMMARY ---
Final Diagnosis Discharge Date: 03/29/17 - Final Diagnosis (1) GDM (gestational diabetes mellitus) Is this a current diagnosis for this admission?: Yes (2) Obesity Is this a current diagnosis for this admission?: Yes (3) Is this a current diagnosis for this admission?: Yes (4) Vitamin D deficiency Is this a current diagnosis for this admission?: Yes (5) Acute blood loss anemia Is this a current diagnosis for this admission?: Yes (6) Vaginal delivery Is this a current diagnosis for this admission?: Yes Discharge Data - Discharge Medication Home Medications: Vit/Iron Fumarate/FA [ Tablet] 1 tab PO DAILY 11/27/15 Ferrous Sulfate [Slow Fe] 1 tab PO DAILY 03/18/17 Gestational Age: 40.6 wks Reason(s) for Admission: Induction of Labor Procedures: Ultrasound Intrapartum Procedure(s): Spontaneous Vaginal Delivery - [place] Data Baby 1 Female at 1 minute: 9 at 5 minutes: 9 Weight: 3.799 kg Home with Mother: Yes Complications: No - Diagnosis Test Laboratory: Temp Pulse Resp BP Pulse Ox 97.4 F 52 L 16 97/57 L 94 03/29/17 07:34 03/29/17 07:34 03/29/17 07:34 03/29/17 07:34 03/29/17 07:34 03/27/17 03/27/17 03/28/17 07:41 07:48 07:36 RBC 4.63 4.06 Hgb 11.7 L 10.3 L Hct 35.5 L 31.0 L Urine Opiates Screen NEGATIVE - Discharge information/Instructions Discharge Activity: Activity As Tolerated, Balance Activity w/Rest, No Lifting Over 10 Pounds, Pelvic Rest, Slowly Increase Activity, No tub bath Discharge Diet: Regular Disposition: HOME, SELF-CARE Follow up with: [facility] in: 4, Weeks
[2017-03-29 12:14] VITALS: BP 95/57
--- NOTE | 2017-03-31 23:43 | Admission Physical ---
Datetime Report Generated by CPN: 03/31/2017 23:41 CURRENT ADMISSION Chief Complaint: Scheduled Induction of Labor Indication for Induction: Postterm Admit Plan: Admit to Unit; Initiate Labor Induction Protocol ALLERGIES Medication Allergies: Yes Medication Allergies: dexamethasone sod phosphate (03/15/2017); Penicillins (03/15/2017); dexamethasone (03/15/2017); latex (03/15/2017) Medication Allergies: dexamethasone sod phosphate (03/06/2017); Penicillins (03/06/2017); dexamethasone (03/06/2017); latex (03/06/2017) Medication Allergies: dexamethasone sod phosphate (12/10/2015); Penicillins (12/10/2015); dexamethasone (12/10/2015); latex (12/11/2015) Latex: Latex Allergies Food Allergies: mushrooms Environmental Allergies: none OBSTETRICAL HISTORY EDC: 03/21/2017 00:00 : 3 Para: 1 Term: 1 : 0 SAB: 1 IAB: 0 Ectopic: 0 Livin Cesareans: 0 VBACs: 0 Multiple Births: 0 Gestational Diabetes: Yes Rh Sensitization: No Incompetent Cervix: No KAY: No Infertility: No ART Treatment: No Uterine Anomaly: No IUGR: No Hx Previous C/S: No Macrosomia: No Hx Loss/Stillborn: No PIH: No Hx : No Placenta Previa/Abruption: No Depression/PP Depression: No PTL/PROM: No Post Hemorrhage: No Current Procedures: Ultrasound; NST Obstetrical History Comments: G1: 2013 G2: in Dec 2015 epidural G3: Current, GDM (diet-controlled) SEE RECORDS Alcohol: No Marijuana : No Cocaine: No Other Illicit Drugs: No Cigarettes: Never Smoker. [id number] MEDICAL HISTORY Diabetes: Yes Diabetes Type: Gestational Diabetes Blood Transfusion: No Pulmonary Disease (Asthma, TB): No Breast Disease: No Hypertension: No Skidder Surgery: No Heart Disease: No Hosp/Surgery: Yes Autoimmune Disorder: No Anesthetic Complications: No Kidney Disease: No Abnormal Pap Smear: No Neuro/Epilepsy: No Psychiatric Disorders: No Other Medical Diseases: No Hepatitis/Liver Disease: No Significant Family History: No Varicosities/Phlebitis: No Trauma/Violence : No Thyroid Dysfunction: No Medical History Comments: T_A as a child; childbirth INFECTIOUS HISTORY Gonorrhea: No Genital Herpes: No Chlamydia: No Tuberculosis: No Syphilis: No Hepatitis: No HIV/AIDS Exposure: No Rash or Viral Illness: No HPV: No Infectious History Comments: denies PHYSICAL EXAM General: Normal HEENT: Normal Neurologic: Normal Thyroid: Normal Heart: Normal Lungs: Normal Breast: Deferred Back: Normal Abdomen: Normal Genitourinary Exam: Normal Extremities: Normal DTRs: Normal Pelvic Type: Adequate Physical Exam Comments: close interval of anemia GDM FETUS A EGA: 40.6 Monitoring: External US Admit Comment: VE 5+/80/vtx/-1, AROM, clear fluid Start Pitocin, anticipate PLANS FOR LABOR AND DELIVERY Labor and Delivery: None Pain Management: Natural Feeding Preference: Breast Benefit of Breast Feed Discussed: Yes Circumcision: N/A INFORMED CONSENT Informed Consent Obtained: Vaginal Delivery Assignment: Nancy Garzon MD Signature: with User ID: [email or web address] : with User ID: [email or web address]
== END 2017-03-29 12:45 | disposition home or self-care (01) | DRG 775 ==
LOC: LR 03-27 07:22 → 2S 03-27 15:35
PROVIDERS: ADMIT Obstetrics & Gynecology; ATTEND Obstetrics & Gynecology
PROC: 10E0XZZ Delivery of Products of Conception, External Approach (ICD-10-PCS; principal; 2017-03-27)
PROC: 3E0P7GC Introduction of Other Therapeutic Substance into Female Reproductive, Via Natural or Artificial Opening (ICD-10-PCS; 2017-03-27)
PROC: 10907ZC Drainage of Amniotic Fluid, Therapeutic from Products of Conception, Via Natural or Artificial Opening (ICD-10-PCS; 2017-03-27)
PROC: 4A1HXCZ Monitoring of Products of Conception, Cardiac Rate, External Approach (ICD-10-PCS; 2017-03-27)
DX: O48.0 Post-term pregnancy (principal); D62 Acute posthemorrhagic anemia; O24.429 Gestational diabetes mellitus in childbirth, unspecified control; O99.214 Obesity complicating childbirth; E66.9 Obesity, unspecified; Z68.33 Body mass index [BMI] 33.0-33.9, adult; O99.02 Anemia complicating childbirth; E55.9 Vitamin D deficiency, unspecified; O62.3 Precipitate labor; O76 Abnormality in fetal heart rate and rhythm complicating labor and delivery; Z88.8 Allergy status to other drugs, medicaments and biological substances; Z88.0 Allergy status to penicillin; Z91.040 Latex allergy status; Z91.018 Allergy to other foods; Z3A.40 40 weeks gestation of pregnancy; Z37.0 Single live birth
CPT/HCPCS: 36415; 80307; 81005; 82803; 85025; 85027; 86592; 86850; 86900; 86901; 88307; J2590; J3490